=== PATIENT | male | born 1980 | race Caucasian/White ===

== ENCOUNTER 2018-09-18 16:17 | Emergency (ER) | payer OTHER ==
[2018-09-18 16:48] VITALS: BP 150/95
--- NOTE | 2018-09-18 16:51 | UC ---
Hand/Wrist HPI - HPI Summary HPI Summary: 38 yo male presents with right arm injury. He tells me that 3 days ago he was at work and tripped on a cart and landed with his right forearm in an awkward position. He is able to move his arm, but has pain with lifting or moving against resistance. Endorses some numbness that radiates to the right hand and all fingers. - History Of Current Complaint Chief Complaint: UCUpperExtremity Stated Complaint: WC-RIGHT ARM INJURY Time Seen by Provider: 09/18/18 16:50 Hx Obtained From: Patient Onset/Duration: Sudden Onset Severity Initially: Moderate Severity Currently: Moderate Pain Intensity: 6 Pain Scale Used: 0-10 Numeric - Allergies/Home Medications Allergies/Adverse Reactions: Allergies Allergy/AdvReac Type Severity Reaction Status Date / Time MS Penicillins [Penicillins] Allergy Severe Rash Verified 09/17/15 20:12 Penicillins Allergy Unknown Rash Verified 09/18/18 16:37 Home Medications: Home Medications Vicks Z-Quil 1 PRN 09/18/18 [History] PMH/Surg Hx/FS Hx/Imm Hx - Additional Past Medical History Additional PMH: None - Surgical History Surgical History: None - Family History Known Family History: Positive: Other - JOINT LAXITY - Social History Occupation: Employed Full-time Lives: With Family Alcohol Use: None Substance Use Type: None Smoking Status (MU): Never Smoked Tobacco Review of Systems All Other Systems Reviewed And Are Negative: Yes Constitutional: Positive: Negative Skin: Positive: Negative Respiratory: Positive: Negative Cardiovascular: Positive: Negative Neurovascular: Positive: Negative Musculoskeletal: Positive: Other: - Right forearm pain Neurological: Positive: Negative Psychological: Positive: Negative Physical Exam - Summary Physical Exam Summary: GENERAL: NAD. WDWN. No pain distress. SKIN: No rashes, sores, lesions, or open wounds. CHEST: No accessory muscle use. Breathing comfortably and in no distress. CV: Pulses intact radial and ulnar. Cap refill <2seconds MSK: RIGHT FOREARM: TTP about mid to distal forearm. FROM at elbow and wrist without pain. Occupational Health Physiotherapist strength intact. No edema or obvious bony deformities. No snuffbox tenderness. NEURO: Alert. Sensations intact hand and all fingers. PSYCH: Age appropriate behavior. Triage Information Reviewed: Yes Vital Signs: Initial Vital Signs Temp 98.1 F 09/18/18 16:40 Pulse 93 09/18/18 16:40 Resp 18 09/18/18 16:40 BP 150/95 09/18/18 16:40 Pulse Ox 97 09/18/18 16:40 Vital Signs Reviewed: Yes Hand/Wrist Course/Dx - Course Course Of Treatment: XR: REPORT AND IMPRESSION: #. Negative for fracture or articular malalignment. Mild dorsal soft tissue swelling. Suspect muscle strain /contusion. Advised to take ibuprofen, RICE, and f/u with Orthopedics if symptoms persist. - Differential Dx/Diagnosis Provider Diagnoses: Right forearm pain. Fall Discharge - Sign-Out/Discharge Documenting (check all that apply): Patient Departure All imaging exams completed and their final reports reviewed: Yes - Discharge Plan Condition: Stable Disposition: HOME Patient Education Materials: Contusion in Adults (ED) Forms: *Work Release Referrals: Holland Rosario MD [Primary Care Provider] - Matias Pace MD [Medical Doctor] - If Needed Additional Instructions: If you develop a fever, shortness of breath, chest pain, new or worsening symptoms - please call your PCP or go to the ED. Your blood pressure was high at todays visit. Please see your primary provider within 4 weeks for recheck and re-evaluation. 1) Rest, Ice, and elevate your arm as much as possible 2) If your symptoms persist, please call Orthopedics at the number below to schedule a follow up appointment - Billing Disposition and Condition Condition: STABLE Disposition: Home
== END 2018-09-18 17:35 | disposition home or self-care (01) ==
LOC: UCCORT 16:17
DX: M79.631 Pain in right forearm (principal); Z88.0 Allergy status to penicillin; W01.0XXA Fall on same level from slipping, tripping and stumbling without subsequent striking against object, initial encounter; Y92.9 Unspecified place or not applicable
CPT/HCPCS: 99211; G0463

== ENCOUNTER 2019-02-22 18:17 | Emergency (ER) | payer OTHER ==
[2019-02-22] MEDS ORDERED: Nicotine Inhaler* 10 MG AMP INH PRN (18:31)
--- NOTE | 2019-02-22 18:34 | ED ---
Psychiatric Complaint - HPI Summary HPI Summary: This pt is a 38 y/o male presenting to [facility] via EMS for SI. Pt reports he has had SI thoughts for the past 1 month now. Denies SI plan. He notes that he is being bossed around by his coworkers and today his exercise manager took their side. Pt states his boss has been harassing him as well. Pt told his boss he wanted to kill himself. Pt has been working for [employer] for the past 17-18 years now. Denies hx of suicide attempt in the past. Denies hx of depression. PMHx: HTN and on medications. He lives in [place] with his parents. Denies tobacco, alcohol, drug use. - History Of Current Complaint Chief Complaint: EDSuicidal Time Seen by Provider: 02/22/19 18:24 Hx Obtained From: Patient Onset/Duration: Lasting Weeks, Still Present Timing: Weeks Severity Currently: Moderate Character: Depressed Aggravating Factor(s): Recent Stress Alleviating Factor(s): Nothing Has Suicidal: Reports: Thoughts. Denies: With A Plan, Has Prior Attempt(s) Has Homicidal: Denies: Thoughts, With A Plan Recent Stressor(s): stress from work - Allergies/Home Medications Allergies/Adverse Reactions: Allergies Allergy/AdvReac Type Severity Reaction Status Date / Time Penicillins Allergy Unknown Rash Verified 02/22/19 18:23 Home Medications: Home Medications Lisinopril/HCTZ 20/12.5(NF) [Zestoretic 20/12.5(NF)] 1 tab PO DAILY 02/22/19 [ History Confirmed 02/22/19] Meloxicam [Mobic] 15 mg PO DAILY PRN 02/22/19 [History Confirmed 02/22/19] Phendimetrazine Tartrate 35 mg PO DAILY 02/22/19 [History Confirmed 02/22/19] PMH/Surg Hx/FS Hx/Imm Hx Endocrine/Hematology History: Denies: Hx Diabetes Cardiovascular History: Reports: Hx Hypertension - Surgical History Surgery Procedure, Year, and Place: COLONOSCOPY Infectious Disease History: No Infectious Disease History: Denies: History Other Infectious Disease, Traveled Outside the [place] in Last 30 Days - Family History Known Family History: Positive: Other - JOINT LAXITY - Social History Occupation: Employed Full-time - [employer] Lives: With Family - parents Alcohol Use: None Substance Use Type: Reports: None Smoking Status (MU): Never Smoked Tobacco Review of Systems Negative: Fever, Chills Psychological: Other - POS: SI thoughts, recent stress Positive: Depressed. Negative: Other - NEG: SI plan. All Other Systems Reviewed And Are Negative: Yes Physical Exam - Summary Physical Exam Summary: Appearance: Well-appearing, Well-nourished, lying in bed comfortable Skin: Warm, dry, no obvious rash Eyes: sclera anicteric, no conjunctival pallor ENT: mucous membranes moist Neck: deferred Respiratory: No signs of respiratory distress Cardiovascular: Appears well perfused, pulses are nml Abdomen: deferred Musculoskeletal: Moving all 4 extremities without obvious discomfort Neurological: Awake and alert, mentation is normal, speech is fluent and appropriate Psychiatric: affect is normal, does not appear anxious or depressed Triage Information Reviewed: Yes Vital Signs On Initial Exam: Initial Vitals Temp Pulse Resp BP Pulse Ox 97.6 F 83 16 160/67 100 02/22/19 18:19 02/22/19 18:19 02/22/19 18:19 02/22/19 18:19 02/22/19 18:19 Vital Signs Reviewed: Yes Diagnostics - Vital Signs Vital Signs Temp Pulse Resp BP Pulse Ox 02/22/19 18:19 97.6 F 83 16 160/67 100 - Laboratory Result Diagrams: 02/22/19 18:47 02/22/19 18:47 Lab Statement: Any lab studies that have been ordered have been reviewed, and results considered in the medical decision making process. Course/Dx - Course Assessment/Plan: Pt is a 38 y/o male who presents to the [facility] via EMS for SI. Pt reports he has had SI thoughts for the past 1 month now. Denies SI plan. He notes that he is being bossed around by his coworkers and today his exercise manager took their side. Pt states his boss has been harassing him as well. Pt told his boss he wanted to kill himself. Labs and toxicology obtained. Pt was medically cleared. Pt had a mental health evaluation and his case was reviewed by Dr. Oropeza, psychiatrist. Dr. Oropeza cleared the pt for discharge. Pt will be discharged home with dx adjustment disorder. - Differential Dx/Clinical Impression Provider Diagnosis: Adjustment disorder Discharge - Sign-Out/Discharge Documenting (check all that apply): Patient Departure - Discharge home Patient Received Moderate/Deep Sedation with Procedure: No - Discharge Plan Condition: Stable Disposition: HOME Patient Education Materials: Mood Disorders (ED), Suicide Prevention (ED) Forms: *Work Release Referrals: Anger, management [Other] [facility] [Outside] Holland Rosario MD [Primary Care Provider] - - Billing Disposition and Condition Condition: STABLE Disposition: Home - Attestation Statements Document Initiated by Melissa: Yes Documenting Lewisibe: Betty Freitas Provider For Whom Melissa is Documenting (Include Credential): Bon Moody MD Scribe Attestation: Betty Jimenez scribed for Bon Moody MD on 02/23/19 at 1418. Scribe Documentation Reviewed: Yes Provider Attestation: The documentation as recorded by the Betty acevedo accurately reflects the service I personally performed and the decisions made by me, Bon Moody MD Status of Scribe Document: Viewed
--- OUTSIDE RECORDS SUMMARY | 2019-02-22 18:51 | XMS REPORT | Continuity of Care Document ---
:1980 External Reference #:[id number] Author Name Cathy Jackson MD Address [address] [place] [address] Care Team Providers Name Role Phone Holland Rosario MD Care Team Information Heavy Media Operator Unavailable Holland Rosario MD Primary Care Physician Unavailable Payers Date Identification Numbers Payment Provider Subscriber Onset: 2018 Policy Number: [id number] Jessi Camejo Group Name: [phone] [address] PayID: [id number] [place] [address] Policy Number: [id number] Rosa Camejo PayID: [id number] [address] [place] [address] Onset: 2016 Policy Number: [id number] Jessi Camejo Group Name: fax#[phone] [address] PayID: [id number] [place] [address] Onset: 2015 Policy Number: [id number] Jessi Camejo Group Name: [id number] [address] [address] PayID: [id number] [place] [address] Effective: 2014 Policy Number: Jessi Camejo [id number] Onset: 2014 Group Name: [phone] [address] [address] PayID: [id number] [place] [address] Advance Directives Description No Information Available Problems Date Description Provider Status Onset: 10/13/2014 Internal hemorrhoids Yifan Addison Active M.D. Onset: 11/15/2014 Synovitis and tenosynovitis Fletcher Quiroga D.O. Active Onset: 09/05/2016 Sprain of shoulder rotator cuff Claudia Jade PA Active Onset: 09/22/2018 Sprain of elbow and forearm Claudia Jade PA Active Family History Date Family Member(s) Observation Comments Father Hypertension Mother Lupus Mother Aneurysm Mother Hypertension Mother Asthma Mother Back Problems Grandfather Heart Attack Grandmother Colon Cancer Social History Type Date Description Comments Sex Unknown Lives With Family Diet Patient follows no dietary restrictions Occupation [employer] Work Status Currently Working Distribution Manager Hand Dominance Right-handed Tobacco Use Start: Unknown Never Smoked Cigarettes ETOH Use Denies alcohol use Tobacco Use Start: Unknown Patient denies history of smoking Recreational Drug Use Denies Drug Use Smoking Status Reviewed: 01/27/19 Patient denies history of smoking Allergies, Adverse Reactions, Alerts Date Description Reaction Status Severity Comments 10/19/2013 Penicillins Active Medications Medication Date Status Form Strength Qnty SIG Indications Ordering Provider Meloxicam 01/05 Active Tablets 15mg 30tab 1 by mouth S56.911D s every day MD Cathy Phendimetrazine Active Tablets 35mg as Unknown Tartrate /0000 directed Lisinopril-[place] Active Tablets 20-12.5mg 1 by mouth Unknown chlorothiazide /0000 every day Ibuprofen Active Tablets 600mg 1 by mouth Unknown /0000 three times a day as needed No Active 09/22 Hx Unknown Medications - 09/22 Ibuprofen 09/22 Hx Tablets 600mg 90tab 1 by mouth s four times MD Cathy - a day as 09/22 needed /2017 No Active 09/22 Hx Unknown Medications - 09/22 Magnesium 02/19 Hx Solution 1.745GM/3 296ml 1 bottle Z12.11 Azael 0ML by mouth x Yifan Magaña M.D. 03/25 Bisacodyl Ec 02/19 Hx Tablets 5mg 4tabs 4 tabs by Z12.[address] danny Saha - Speedy HShelly Dawson 03/25 evening before colonoscop y Voltaren 09/26 Hx Gel 1% 300gm 2g to West shoulder 4 Holland, - times a M.D. Meloxicam 12/27 Hx Tablets 15mg 30tab 1 by mouth Junaid, s every day Fletcher Butler - D.O. 09/22 Nabumetone 09/22 Hx Tablets 750mg 60tab take 1 s tablet by Darron Madrid, - mouth 2 HEMAL PATEL 08/28 times day with food Meloxicam 10/19 Hx Tablets 15mg 30tab 1 by mouth farheen s every day Darron Madrid, - with food , FACS 09/22 Ibuprofen 00/00 Hx Tablets Unknown /0000 - 10/19 Amlodipine 00 Hx Tablets 10mg 1 by mouth Unknown Besylate /0000 every day - 11/19 Medications Administered in Office Medication Date Status Form Strength Qnty SIG Indications Ordering Provider Depomedrol Administered Injection Joshua, 40mg/1cc 014 Kelsi Castro, (methylprednis RPAC olone acetate) Immunizations Description No Information Available Vital Signs Date Vital Result Comment 01/27/2019 11:11am BP Systolic 136 mmHg BP Diastolic 82 mmHg Body Temperature 98.0 F Heart Rate 105 /min Height 71 inches 5'11" Weight 278.00 lb BMI (Body Mass Index) 38.8 kg/m2 BSA (Body Surface Area) 2.43 m2 [place] body weight in kilograms 78 kg O2 % BldC Oximetry 97 % room air Pain Level 0 01/05/2019 9:51am BP Systolic Sitting Right Arm 129 mmHg BP Diastolic Sitting Right Arm 78 mmHg Body Temperature 97.6 F Heart Rate 114 /min Height 70.5 inches 5'10.50" Weight 275.00 lb BMI (Body Mass Index) 38.9 kg/m2 BSA (Body Surface Area) 2.40 m2 [place] body weight in kilograms 77 kg O2 % BldC Oximetry 100 % 12/15/2018 9:52am BP Systolic 134 mmHg BP Diastolic 84 mmHg Body Temperature 97.4 F Heart Rate 108 /min Respiratory Rate 17 /min Height 70.5 inches 5'10.50" Weight 281.00 lb BMI (Body Mass Index) 39.7 kg/m2 BSA (Body Surface Area) 2.42 m2 [place] body weight in kilograms 77 kg O2 % BldC Oximetry 97 % room air Pain Level 5 11/19/2018 1:13pm BP Systolic Sitting Right Arm 126 mmHg BP Diastolic Sitting Right Arm 78 mmHg Body Temperature 98.1 F Heart Rate 102 /min Respiratory Rate 18 /min Height 70.5 inches 5'10.50" Weight 285.00 lb BMI (Body Mass Index) 40.3 kg/m2 BSA (Body Surface Area) 2.44 m2 [place] body weight in kilograms 77 kg O2 % BldC Oximetry 97 % 10/29/2018 1:47pm BP Systolic 120 mmHg BP Diastolic 62 mmHg Body Temperature 98.7 F Heart Rate 123 /min Height 70.5 inches 5'10.50" Weight 287.00 lb BMI (Body Mass Index) 40.6 kg/m2 BSA (Body Surface Area) 2.45 m2 [place] body weight in kilograms 77 kg O2 % BldC Oximetry 97 % Pain Level 5 10/07/2018 11:31am BP Systolic 130 mmHg BP Diastolic 86 mmHg Body Temperature 98.1 F Heart Rate 92 /min Height 70.5 inches 5'10.50" Weight 288.00 lb BMI (Body Mass Index) 40.7 kg/m2 BSA (Body Surface Area) 2.45 m2 [place] body weight in kilograms 77 kg O2 % BldC Oximetry 94 % Pain Level 5 09/22/2018 10:33am BP Systolic 164 mmHg BP Diastolic 100 mmHg Body Temperature 98.1 F Heart Rate 103 /min Height 70.5 inches 5'10.50" Weight 297.00 lb BMI (Body Mass Index) 42.0 kg/m2 BSA (Body Surface Area) 2.48 m2 [place] body weight in kilograms 77 kg Both Visual Acuity Distance 98 Pain Level 6 02/19/2018 8:39am BP Systolic 130 mmHg BP Diastolic 88 mmHg Height 70.5 inches 5'10.50" Weight 289.00 lb BMI (Body Mass Index) 40.9 kg/m2 BSA (Body Surface Area) 2.45 m2 [place] body weight in kilograms 77 kg 09/05/2016 10:18am BP Systolic Sitting Left Arm 132 mmHg BP Diastolic Sitting Left Arm 78 mmHg Height 70.5 inches 5'10.50" Weight 300.00 lb BMI (Body Mass Index) 42.4 kg/m2 BSA (Body Surface Area) 2.49 m2 [place] body weight in kilograms 77 kg 08/28/2015 1:04pm BP Systolic Sitting Right Arm 128 mmHg BP Diastolic Sitting Right Arm 90 mmHg Heart Rate 105 /min Height 70 inches 5'10" Weight 295.00 lb BMI (Body Mass Index) 42.3 kg/m2 BSA (Body Surface Area) 2.46 m2 10/13/2014 8:36am BP Systolic Sitting Right Arm 140 mmHg BP Diastolic Sitting Right Arm 99 mmHg Heart Rate 93 /min Respiratory Rate 20 /min Height 71 inches 5'11" Weight 290.00 lb BMI (Body Mass Index) 40.4 kg/m2 BSA (Body Surface Area) 2.47 m2 08/01/2014 11:19am BP Systolic Sitting Left Arm 138 mmHg BP Diastolic Sitting Left Arm 90 mmHg Height 70.75 inches 5'10.75" Weight 285.00 lb BMI (Body Mass Index) 40.0 kg/m2 BSA (Body Surface Area) 2.45 m2 10/19/2013 10:56am BP Systolic Sitting Left Arm 130 mmHg BP Diastolic Sitting Left Arm 94 mmHg Height 70.75 inches 5'10.75" Weight 284.00 lb BMI (Body Mass Index) 39.9 kg/m2 BSA (Body Surface Area) 2.44 m2 Results Description No Information Available Procedures Date Code Description Status 03/13/2018 71697 Colonoscopy W/ Band Ligations Completed 03/13/2018 78751 Colonoscopy With Biopsy Completed 03/13/2018 78421123 Colonoscopy Completed 08/28/2015 88123 Radiology, Heel 2 Views Completed 08/28/2015 26876 Radiology, Heel 2 Views Completed 08/28/2015 24777 Radiology, Both Knees Standing Completed 08/28/2015 21880 Radiology, Both Knees Standing Completed 11/01/2014 41102 Hemorrhoidectomy Internal Ligation Other Than Rubber Completed Band Single 08/26/2014 [id number] Colonoscopy Completed 11/30/2013 09980 Radiology, Elbow Complete Completed 11/30/201354745 Aspiration/Injection joint Completed intermediate(wrist/ankle/elbow/olbursa 11/30/201389305 Aspiration/Injection joint Completed intermediate(wrist/ankle/elbow/olbursa 10/19/2013 67768 Radiology, Elbow Complete Completed 02/26/2013 [id number] Colonoscopy Completed 03/15/2005 [id number] Colonoscopy Completed Encounters Type Date Location Provider Dx Diagnosis Office Visit 01/27/2019 Orthopaedic Office Claudia Jade, S56.911D Strain of unsp 11:00a PA musc/fasc/tend at forarm lv, right arm, subs Office Visit 01/05/2019 Orthopaedic Office Claudia Jade, S56.911D Strain of unsp 10:00a PA musc/fasc/tend at forarm lv, right arm, subs Office Visit 12/15/2018 Orthopaedic Office Claudia Jade, S56.911D Strain of unsp 9:45a PA musc/fasc/tend at forarm lv, right arm, subs Office Visit 11/19/2018 Orthopaedic Office Claudia Jade, S56.911D Strain of unsp 1:15p PA musc/fasc/tend at forarm lv, right arm, subs Office Visit 10/29/2018 Orthopaedic Office Claudia Jade, S56.911D Strain of unsp 2:00p PA musc/fasc/tend at forarm lv, right arm, subs Office Visit 10/07/2018 Orthopaedic Office Claudia Jade, S56.911D Strain of unsp 11:15a PA musc/fasc/tend at forarm lv, right arm, subs Office Visit 09/22/2018 Orthopaedic Office Claudia Jade, S56.911A Strain of unsp 10:30a PA musc/fasc/tend at forarm lv, right arm, init W18.09xA Striking against oth object w subsequent fall, init encntr Y93.9 Activity, unspecified Y99.0 Civilian activity done for income or pay Office Visit 03/25/2018 10:45a Surgical Office Azael K64.8 Other hemorrhoids Yifan Magaña M.D. Z12.11 Encounter for screening for malignant neoplasm of colon K57.30 Dvrtclos of lg int w/o perforation or abscess w/o bleeding Office Visit 02/19/2018 8:45a Surgical Office Azael Z12.11 Encounter for mary Nelson for Shelly malignant neoplasm of colon K62.5 Hemorrhage of anus and rectum Z86.010 Personal history of colonic polyps Office 10/31/2016 Orthopaedic Claudia Jade, S43.421D Sprain of right Visit 1:15p Office PA rotator cuff capsule, subsequent encounter Office 10/10/2016 Orthopaedic Claudia Jade, S43.421D Sprain of right Visit 11:00a Office PA rotator cuff capsule, subsequent encounter Office 09/26/2016 Orthopaedic Claudia Jade, S43.421D Sprain of right Visit 11:00a Office PA rotator cuff capsule, subsequent encounter Office 09/17/2016 Claudia Rhodes, S43.421D Sprain of right Visit 2:00p Office PA rotator cuff capsule, subsequent encounter Office 09/05/2016 Orthopaedic Claudia Jade, S43.421A Sprain of right Visit 10:15a Office PA rotator cuff capsule, initial encounter Office 09/27/2015 Orthopaedic Kelsi Joshua M25.562 Pain in left knee Visit 9:45a Office Matthew, RPAC Office 09/22/2015 Orthopaedic Kar Gonzales, Z47.89 Encounter for Visit 10:15a Office DO other orthopedic aftercare Office 08/28/2015 Orthopaedic Kar Gonzales, 844.9 Sprains & Strains Visit 1:00p Office DO Knee & Leg Unspec Office 12/27/2014 Orthopaedic Fletcher Quiroga 727.09 Synovitis & Visit 10:45a Office Carrie D.OEunice Tenosynovitis Other Office 11/30/2014 Surgical Office Azael V67.09 Follow Up Visit 1:15p Yifan Magaña Examination Shelly Following Other Surgery 455.2 Hemorrhoids Internal W/ Other Complications Office Visit 11/15/2014 11:00a Dave Quiroga 727.09 Synovitis & Office Dave Piedraosynsteff Other D.O. Office Visit 10/20/2014 10:30a Dave Joshua 840.8 Sprains & Strains Office Kelsi Castro, Shoulder & Upper RPAC Arm Other Spec Sites 840.8 Sprains & Strains Shoulder & Upper Arm Other Spec Sites 719.42 Pain Joint Upper Arm 719.42 Pain Joint Upper Arm Office Visit 10/13/2014 Surgical Office Azael, 455.2 Hemorrhoids 8:15a Yifan Magaña Internal W/ Other M.DEunice Complications Office Visit 09/22/2014 Kelsi Rayo 840.8 Sprains & Strains 10:30a Office S., RPAC Shoulder & Upper Arm Other Spec Sites 840.8 Sprains & Strains Shoulder & Upper Arm Other Spec Sites 719.42 Pain Joint Upper Arm Office Visit 09/05/2014 1:30p Orthopaedic Office Joshua, Kelsi 840.8 Sprains & S., RPAC Strains Shoulder & Upper Arm Other Spec Sites 719.42 Pain Joint Upper Arm 840.8 Sprains & Strains Shoulder & Upper Arm Other Spec Sites 719.42 Pain Joint Upper Arm Office Visit 02/08/2014 Orthopaedic Josiane 726.32 Epicondylitis 11:15a Office Kelsi S., Lateral RPAC 726.32 Epicondylitis Lateral Office Visit 12/28/2013 Orthopaedic Josiane 726.32 Epicondylitis 11:15a Office Kelsi S., Lateral RPAC 719.42 Pain Joint Upper Arm 719.42 Pain Joint Upper Arm 726.32 Epicondylitis Lateral Office Visit 11/30/2013 2:00p Orthopaedic Office Kelsi Joshua 719.42 Pain Joint S., RPAC Upper Arm 719.42 Pain Joint Upper Arm 726.32 Epicondylitis Lateral 726.32 Epicondylitis Lateral 719.42 Pain Joint Upper Arm Office Visit 10/19/2013 11:00a Orthopaedic Office Kelsi Joshua 719.42 Pain Joint S., RPAC Upper Arm 719.42 Pain Joint Upper Arm Plan of Treatment Future Appointment(s):04/27/2019 1:30 pm - Daniel Ramirez MD at GI01/27/2019 - Claudia Jade, PAS56.911D Strain of unspecified muscles, fascia and tendons at forearmComments:Overall much improved. He is without pain. He'll continue therapy until discharge. Return to work without restriction. Follow-up as needed.Follow up:prn
[2019-02-22 18:55] LABS: ABS Basophils 0 10^3/ul (0-0.2); ABS Eosinophils 0 10^3/ul (0-0.6); ABS Lymphocytes 0.6 10^3/ul (1.0-4.8); ABS Monocytes 0.4 10^3/ul (0-0.8); ABS Neutrophils 4.1 10^3/ul (1.5-7.7); ABS Nucleated RBC 0 10^3/ul; Eosinophil % 0.1 %; Hematocrit 43 % (36-46); Hemoglobin 15.1 g/dL (14.0-18.0); Lymphocyte % 11.5 %; Mean Corpuscular HGB Conc 35 g/dL (31-36); Mean Corpuscular Hemoglobin 32 pg (27-31); Mean Corpuscular Volume 90 fL (80-94); Mean Platelet Volume 8.4 fL (7.4-10.4); Nucleated Red Blood Cells % 0; Platelet Count 191 10^3/uL (150-450); Red Blood Count 4.78 10^6 /uL (4.18-5.48); Red Cell Distribution Width 13 % (10.5-15); White Blood Count 5.2 10^3/uL (3.5-10.8)
[2019-02-22 19:13] LABS: ALT 26 U/L (7-52); AST 20 U/L (13-39); Albumin 4.6 g/dL (3.2-5.2); Albumin/Globulin Ratio 2.1 (1-3); Alkaline Phosphatase 66 U/L (34-104); Anion Gap 5 mmol/L (2-11); BUN/Creatinine Ratio 12.1 (8-20); Blood Urea Nitrogen 12 mg/dL (6-24); CO2 Carbon Dioxide 28 mmol/L (22-32); Calcium 9.6 mg/dL (8.6-10.3); Chloride 105 mmol/L (101-111); EGFR African American 102.9 (>60); EGFR Non-African American 85.1 (>60); Globulin 2.2 g/dL (2-4); Glucose 101 mg/dL (70-100); Potassium 4.2 mmol/L (3.5-5.0); Sodium 138 mmol/L (135-145); Total Protein 6.8 g/dL (6.4-8.9)
[2019-02-22 19:35] VITALS: BP 165/87
[2019-02-22 19:53] LABS: Alcohol < 10 mg/dL (<10)
[2019-02-22 20:08] LABS: TSH (Thyroid Stimulating Horm) 1.66 mcIU/mL (0.34-5.60)
== END 2019-02-22 20:42 | disposition home or self-care (01) ==
LOC: ED 18:17
DX: F43.20 Adjustment disorder, unspecified (principal); F32.9 Major depressive disorder, single episode, unspecified; I10 Essential (primary) hypertension; Z88.0 Allergy status to penicillin
CPT/HCPCS: 36415; 80053; 80320; 84443; 85025; 99284; G0480